=== PATIENT | female | born 1970 | race Caucasian/White ===

== ENCOUNTER 2018-11-26 12:24 | Day surgery (SDC) | payer OTHER ==
[2018-11-26] MEDS ORDERED: Depo-Medrol 40 MG/ML IM ONE (12:25)
[2018-11-26] MEDS ORDERED: Marcaine 0.5% SDV 10 ML IJ ONE (12:25)
[2018-11-26] MEDS ORDERED: Xylocaine 1% Vial 30 ML PF IJ ONE (12:25)
--- NOTE | 2018-11-26 14:59 | XRAY ---
Indication: Left hip injection. Intraoperative fluoroscopy was provided for 18 seconds. Single digital spot image submitted for interpretation demonstrates needle tip just lateral to the left femur neck. Small amount of contrast injected for needle tip placement. Correlate with intraoperative findings/report.
--- NOTE | 2018-11-26 14:59 | XRAY ---
Indication: Right hip injection. Intraoperative fluoroscopy was provided for 18 seconds. Single digital spot image submitted for interpretation demonstrates needle tip just lateral to the right femur head. Small amount of contrast injected for needle tip placement. Correlate with intraoperative findings/report.
--- NOTE | 2018-11-26 15:02 | XRAY ---
18 seconds fluoroscopy time in surgery for left hip injection.
--- NOTE | 2018-11-26 15:02 | XRAY ---
18 seconds fluoroscopy time in surgery for right hip injection.
== END 2018-11-26 13:57 | disposition home or self-care (01) ==
LOC: SDC-PAIN 12:24
PROVIDERS: ATTEND Psychiatry & Neurology Pain Medicine
DX: M16.0 Bilateral primary osteoarthritis of hip (principal); I10 Essential (primary) hypertension; E78.00 Pure hypercholesterolemia, unspecified; M06.9 Rheumatoid arthritis, unspecified; K21.9 Gastro-esophageal reflux disease without esophagitis; I25.2 Old myocardial infarction; Z95.810 Presence of automatic (implantable) cardiac defibrillator
CPT/HCPCS: 20610; 73501; 77002; J1030; J2001; Q9966

== ENCOUNTER 2020-11-23 12:20 | Day surgery (SDC) | payer OTHER ==
[2020-11-23] MEDS ORDERED: Xylocaine 1% Vial 30 ML PF IJ ONE (12:21)
[2020-11-23] MEDS ORDERED: Depo-Medrol 40 MG/ML IM ONE (12:21)
[2020-11-23] MEDS ORDERED: BUPIVACAINE 0.5% VIAL IJ ONE (12:21)
--- NOTE | 2020-11-23 15:30 | XRAY ---
Indication: Right shoulder and subacromial injections. Intraoperative fluoroscopy provided for 18 seconds. 3 digital spot images submitted for interpretation demonstrates needle tip projecting over the right glenohumeral joint superiorly. Second needle tip subacromial. Small amount of contrast injected for needle tip placement. Correlate with intraoperative findings/report.
[2020-11-23] MEDS ORDERED: Lactated Ringers 1,000 ML IV ONE (15:57)
--- NOTE | 2020-11-23 17:40 | XRAY ---
18 seconds of fluoroscopy was used in surgery for a right intra-articular and subachromial injections.
== END 2020-11-23 15:40 | disposition home or self-care (01) ==
LOC: SDC-PAIN 12:20
PROVIDERS: ATTEND Psychiatry & Neurology Pain Medicine
DX: M19.011 Primary osteoarthritis, right shoulder (principal); M75.51 Bursitis of right shoulder; I50.9 Heart failure, unspecified; I10 Essential (primary) hypertension; E78.5 Hyperlipidemia, unspecified; K21.9 Gastro-esophageal reflux disease without esophagitis; Z79.899 Other long term (current) drug therapy
CPT/HCPCS: 20610; 73030; 77002; J1030; J2001; Q9966

== ENCOUNTER 2021-01-04 10:49 | Day surgery (SDC) | payer OTHER ==
[2021-01-04] MEDS ORDERED: BUPIVACAINE 0.5% VIAL IJ ONE (10:50)
[2021-01-04] MEDS ORDERED: Depo-Medrol 40 MG/ML IM ONE (10:50)
[2021-01-04] MEDS ORDERED: Versed 2 MG/2 ML Injection ONE (13:34)
[2021-01-04] MEDS ORDERED: DIPRIVAN 200 MG/20 ML IV ONE (13:47)
--- NOTE | 2021-01-04 15:58 | XRAY ---
15 seconds of fluoroscopy was used in surgery for a right subachromial bursa and intra-articular injection.
[2021-01-04] MEDS ORDERED: Lactated Ringers 1,000 ML IV ONE (17:31)
== END 2021-01-04 14:12 | disposition home or self-care (01) ==
LOC: SDC-PAIN 10:49
PROVIDERS: ATTEND Psychiatry & Neurology Pain Medicine
DX: M19.011 Primary osteoarthritis, right shoulder (principal); M75.51 Bursitis of right shoulder; Z79.899 Other long term (current) drug therapy; I10 Essential (primary) hypertension; E78.00 Pure hypercholesterolemia, unspecified
CPT/HCPCS: 20610; 73030; 77002; J1030; J2250; J2704

== ENCOUNTER 2021-05-31 10:00 | Day surgery (SDC) | payer OTHER ==
[2021-05-31] MEDS ORDERED: BUPIVACAINE 0.5% VIAL IJ ONE (10:01)
[2021-05-31] MEDS ORDERED: Depo-Medrol 40 MG/ML IM ONE (10:01)
[2021-05-31] MEDS ORDERED: Lactated Ringers 1,000 ML IV ONE (10:26)
[2021-05-31] MEDS ORDERED: DIPRIVAN 200 MG/20 ML IV ONE (11:04)
--- NOTE | 2021-05-31 12:37 | XRAY ---
Indication: Right shoulder injection. Intraoperative fluoroscopy provided for 20 seconds. 2 digital spot image submitted for interpretation demonstrate needle tip projecting over the right glenohumeral joint superiorly. Second needle tip subacromial. Small amount of contrast injected for both needle tip placement. Correlate with intraoperative findings/report.
--- NOTE | 2021-05-31 14:06 | XRAY ---
20 seconds of fluoroscopy was used in surgery for a right intra-articular and subacromial bursa injection.
== END 2021-05-31 11:32 | disposition home or self-care (01) ==
LOC: SDC-PAIN 10:00
PROVIDERS: ATTEND Psychiatry & Neurology Pain Medicine
DX: M19.011 Primary osteoarthritis, right shoulder (principal); M75.51 Bursitis of right shoulder; I10 Essential (primary) hypertension; I50.9 Heart failure, unspecified; Z79.899 Other long term (current) drug therapy
CPT/HCPCS: 20550; 20610; 73030; 77002; J1030; J2704; Q9966

== ENCOUNTER 2023-10-09 08:05 | Day surgery (SDC) | payer OTHER ==
[2023-10-09] MEDS ORDERED: BUPIVACAINE 0.5% VIAL IJ ONE (08:06)
[2023-10-09] MEDS ORDERED: Depo-Medrol 40 MG/ML IM ONE (08:06)
[2023-10-09] MEDS ORDERED: Lactated Ringers 1,000 ML IV ONE (11:10)
[2023-10-09] MEDS ORDERED: DIPRIVAN 200 MG/20 ML IV ONE (11:15)
--- NOTE | 2023-10-09 12:22 | XRAY ---
Indication: Bilateral SI joint injection. Intraoperative fluoroscopy provided for 20 seconds. 2 digital spot image submitted for interpretation demonstrates posterior needle tips projecting over the expected left and right SI joints with small amount of contrast injected for needle tip placement. Correlate with intraoperative findings/report.
--- NOTE | 2023-10-09 12:33 | XRAY ---
20 seconds of fluoroscopy was used in surgery for a bilateral sacroiliac joint injection.
== END 2023-10-09 11:52 | disposition home or self-care (01) ==
LOC: SDC-PAIN 08:05
PROVIDERS: ATTEND Psychiatry & Neurology Pain Medicine
DX: M46.1 Sacroiliitis, not elsewhere classified (principal)
CPT/HCPCS: 27096; 72202; 77002; 82947; J1010; J2704; Q9966; G0260